=== PATIENT | male | born 1970 | race Caucasian/White ===

== ENCOUNTER → 2019-02-15 | Outpatient (CLI) | payer OTHER ==
[~2019-02-15] MED LIST: IBUPROFEN 800800 MG PO; NOHOMEMEDICATIONS; NORCO 5-325 TA1 EACH PO; PREDNISONE 20 M20 M1 PO; ROBAXIN500 MG PO
== END ==
LOC: M.RAD 16:39
DX: J98.11 Atelectasis (principal)